=== PATIENT | female | born 1975 | race Caucasian/White ===

== ENCOUNTER → 2017-02-10 | Outpatient (CLI) | payer BC ==
[~2017-02-10] MED LIST: FLUT1DIS IH; LEVO250T25 PO; PRED1TAB3 PO
--- NOTE | 2017-02-10 13:01 | KCIC ---
PROCEDURE Right upper quadrant ultrasound. HISTORY Right upper quadrant pain. Elevated liver enzymes. FINDINGS Sonographic evaluation of the upper abdomen was performed. The pancreas is mostly obscured. Limited images of the pancreatic head reveal no gross abnormality. The abdominal aorta and inferior vena cava are grossly patent and normal in caliber. The common duct measures 6 millimeters. The gallbladder appears normal without evidence of stones, pericholecystic fluid or wall thickening. Mild hyperechogenicity of the hepatic parenchyma is consistent with diffuse hepatic steatosis. No focal lesions are seen. The right kidney measures 10.3 centimeters pole to pole. Cortical thickness and echogenicity are preserved and there is no hydronephrosis. IMPRESSION - Diffuse hepatic steatosis. Electronically signed by: Viktor Decker (Feb 10, 2017 13:00:12)
== END | disposition home or self-care (01) ==
LOC: KCIC US 12:15
PROVIDERS: ATTEND Obstetrics & Gynecology
DX: K76.0 Fatty (change of) liver, not elsewhere classified (principal); R94.5 Abnormal results of liver function studies
CPT/HCPCS: 76705